=== PATIENT | male | born 2000 | race Caucasian/White ===

== ENCOUNTER 2020-02-28 18:37 | Observation (INO) | payer OTHER ==
[~2020-02-28] VITALS: Ht 177.8 cm; Wt 59.0 kg
[~2020-02-28 18:37] MED LIST: IBUPROFEN 600600 M1 PO; KEFLEX500 MG PO
[2020-02-28 18:49] VITALS: BP 123/80
[2020-02-28 19:07] LABS: ABSOLUTE BASOPHILS 0.1 thou/uL (0.0-0.2); ABSOLUTE EOSINOPHILS 0.1 thou/uL (0.0-0.7); ABSOLUTE LYMPHOCYTES 1.1 thou/uL (0.8-5.3); ABSOLUTE MONOCYTES 0.8 thou/uL (0.0-1.2); ABSOLUTE NEUTROPHILS 10.2 thou/uL (1.6-8.1); BASOPHILS 0.8 %; EOSINOPHILS 0.7 %; HEMATOCRIT 50.1 % (42.0-52.0); HEMOGLOBIN 17.8 gm/dL (14.0-18.0); LYMPHOCYTES 9.3 %; MCH 31.9 pg (26.0-34.0); MCHC 35.5 g/dL (28.0-37.0); MONOCYTES 6.4 %; MPV 6.5 fl. (7.2-11.1); NUCLEATED RBCS 0 /100WBC; PLATELET COUNT* 240 thou/uL (150-400); POLYS 82.8 %; RBC 5.57 mil/uL (4.50-6.00); RDW-CV 13.3 % (10.5-14.5); WBC 12.3 thou/uL (4.0-11.0)
[2020-02-28 19:17] LABS: CALCIUM 9.3 mg/dL (8.5-10.1); POTASSIUM 3.4 mmol/L (3.5-5.1)
[2020-02-28 19:21] LABS: ALBUMIN 4.9 g/dL (3.4-5.0); TOTAL BILIRUBIN 0.8 mg/dL (<0.1-1.0)
[2020-02-28 19:38] LABS: URINE BILIRUBIN NEGATIVE (Negative); URINE BLOOD NEGATIVE (Negative); URINE CLARITY CLEAR; URINE COLOR YELLOW; URINE GLUCOSE-RANDOM NEGATIVE (Negative); URINE KETONES NEGATIVE (Negative); URINE LEUKOCYTES-REFLEX NEGATIVE (Negative); URINE NITRITE-REFLEX NEGATIVE (Negative); URINE PROTEIN NEGATIVE (Negative); URINE SPECIFIC GRAVITY 1.025 (1.005-1.030); URINE UROBILINOGEN 0.2 E.U./dl (0.2-1.0)
[2020-02-28 19:49] LABS: AMP/METHAMP Negative (Negative); BARBITURATES Negative (Negative); BENZODIAZEPINES Negative (Negative); COCAINE Negative (Negative); METHADONE Negative (Negative); OPIATES Negative (Negative); PCP Negative (Negative); THC POSITIVE (Negative)
[2020-02-28] MEDS ORDERED: ONDANSETRON HCL4 M2 PO (20:29)
[2020-02-28] MEDS ORDERED: BENTYL 20 MG TA20 M1 PO (20:29)
[2020-02-28 23:35] VITALS: BP 114/66
--- NOTE | 2020-02-29 10:50 | EKG ---
[place] [address] ELECTROCARDIOGRAM REPORT Name: AMINA COSMEINIC Darell Room: [address]#: [id number] Admission: 02/28/20 Attend Phys: Deven Raman Discharge: 02/28/20 Date of : [birth year] Date of Service: 02/28/20 1909 Report #: [id number] THIS REPORT FOR: //name// [facility] ED Test Date: 2020-02-28 Test Time: 19:09:07 Pat Name: ROBYN COSME Department: Room: [facility] Gender: M Radio Producer: JANIYA : 2000 Requested By: Renetta Duval Order Number: [id number] MD: Kal Villaseñor Measurements Intervals [place] Rate: 98 P: 70 VA: 133 QRS: 68 QRSD: 94 T: 61 QT: 357 QTc: 456 Interpretive Statements Sinus rhythm RSR' in V1 or V2, right VCD or RVH No previous ECG available for comparison Electronically Signed On 02-29-2020 10:49:36 CDT by Kal Villaseñor [email or web address] <ELECTRONICALLY SIGNED> By: Kal Villaseñor MD, [facility] 02/29/20 1049 1909 1909 Kal Villaseñor MD, [facility] /EPI
[2020-02-29] MEDS ORDERED: BENTYL 20 MG TA20 M1 PO (18:55)
[2020-02-29] MEDS ORDERED: ZOFRAN ODT4 MG DISSOLVE (18:55)
== END 2020-02-28 23:35 | disposition left against medical advice (07) ==
LOC: M.ERS 18:37 → M.TBA-ER 22:49
PROVIDERS: Nurse Practitioner Family; ADMIT Surgery; ATTEND Surgery
DX: R11.2 Nausea with vomiting, unspecified (principal); R10.32 Left lower quadrant pain; R42 Dizziness and giddiness; F31.9 Bipolar disorder, unspecified; F41.9 Anxiety disorder, unspecified; F19.10 Other psychoactive substance abuse, uncomplicated; F43.10 Post-traumatic stress disorder, unspecified; F17.210 Nicotine dependence, cigarettes, uncomplicated

== ENCOUNTER 2020-02-29 14:54 | Emergency (ER) | payer OTHER ==
[~2020-02-29] VITALS: Ht 170.2 cm; Wt 61.2 kg
[~2020-02-29 14:54] MED LIST changes: +BENTYL 20 MG TA20 M1 PO; +ONDANSETRON HCL4 M2 PO
[2020-02-29 15:18] LABS: URINE BILIRUBIN NEGATIVE (Negative); URINE BLOOD NEGATIVE (Negative); URINE CLARITY CLEAR; URINE COLOR YELLOW; URINE GLUCOSE-RANDOM NEGATIVE (Negative); URINE KETONES TRACE (Negative); URINE LEUKOCYTES-REFLEX NEGATIVE (Negative); URINE NITRITE-REFLEX NEGATIVE (Negative); URINE PROTEIN NEGATIVE (Negative); URINE UROBILINOGEN 0.2 E.U./dl (0.2-1.0)
[2020-02-29 15:53] LABS: ABSOLUTE EOSINOPHILS 0.1 thou/uL (0.0-0.7); ABSOLUTE LYMPHOCYTES 0.8 thou/uL (0.8-5.3); ABSOLUTE MONOCYTES 0.3 thou/uL (0.0-1.2); ABSOLUTE NEUTROPHILS 2.7 thou/uL (1.6-8.1); BASOPHILS 0.5 %; EOSINOPHILS 1.6 %; HEMATOCRIT 43.3 % (42.0-52.0); LYMPHOCYTES 19.8 %; MCHC 35.6 g/dL (28.0-37.0); MCV 89.7 fL (80.0-100.0); MONOCYTES 8.2 %; MPV 6.7 fl. (7.2-11.1); NUCLEATED RBCS 0 /100WBC; PLATELET COUNT* 174 thou/uL (150-400); POLYS 69.9 %; RBC 4.82 mil/uL (4.50-6.00); RDW-CV 13.1 % (10.5-14.5); WBC 3.9 thou/uL (4.0-11.0)
[2020-02-29 15:54] LABS: HEMOGLOBIN 15.4 gm/dL (14.0-18.0)
[2020-02-29 16:02] LABS: CALCIUM 9.2 mg/dL (8.5-10.1); POTASSIUM 3.5 mmol/L (3.5-5.1)
[2020-02-29 16:06] LABS: ALBUMIN 4.5 g/dL (3.4-5.0); TOTAL BILIRUBIN 1.5 mg/dL (<0.1-1.0); TOTAL PROTEIN 7.4 g/dL (6.4-8.2)
[2020-02-29] MEDS ORDERED: ZOFRAN ODT4 MG DISSOLVE (18:55)
[2020-02-29] MEDS ORDERED: BENTYL 20 MG TA20 M1 PO (18:55)
[2020-02-29 19:10] VITALS: BP 127/82
--- NOTE | 2020-03-01 09:50 | EKG ---
[place] [address] ELECTROCARDIOGRAM REPORT Name: ROBYN COSME Room: [facility]#: [id number] Admission: 02/29/20 Attend Phys: Discharge: 02/29/20 Date of : 00 Date of Service: 02/29/20 1521 Report #: [id number] THIS REPORT FOR: //name// [facility] ED Test Date: 2020-02-29 Test Time: 15:21:27 Pat Name: ROBYN COSME Department: Room: Gender: Senior Cost Accountant: : 2000 Requested By: Leonides Root Order Number: [id number] MD: Kal Villaseñor Measurements Intervals [place] Rate: 66 P: 34 GA: 129 QRS: 66 QRSD: 85 T: 63 QT: 373 QTc: 391 Interpretive Statements Sinus rhythm early transition Atrial premature complexes in couplets Compared to ECG 02/28/2020 19:09:07 Atrial premature complex(es) now present Right ventricular hypertrophy no longer present Electronically Signed On 03-01-2020 9:49:34 CDT by Kal Villaseñor [email or web address] <ELECTRONICALLY SIGNED> By: Kal Villaseñor MD, FAC 03/01/20 0949 1521 1521 Kal Villaseñor MD, [facility] /EPI
== END 2020-02-29 19:10 | disposition home or self-care (01) ==
LOC: M.ERS 14:54
PROVIDERS: Emergency Medicine Emergency Medical Services
DX: R10.11 Right upper quadrant pain (principal); R10.31 Right lower quadrant pain; R10.2 Pelvic and perineal pain; F41.9 Anxiety disorder, unspecified; F31.9 Bipolar disorder, unspecified